=== PATIENT | female | born 1965 | race Caucasian/White ===

== ENCOUNTER 2022-08-12 19:26 | Emergency (ER) | payer OTHER ==
[~2022-08-12] VITALS: Ht 152.4 cm; Wt 58.1 kg
[2022-08-12] MEDS ORDERED: HYDROCODONE/APAP 10/325MG TABLET PO ONE (22:30)
[2022-08-12] MEDS ORDERED: HYDROCODONE/APAP 10/325MG TABLET ONE (22:36)
[2022-08-12] MEDS ORDERED: HYDR-4303 PO (22:36)
--- NOTE | 2022-08-12 23:21 | NUR ---
Patient discharged to home in stable condition. Written and verbal after care instructions given. Patient verbalizes understanding of instruction.
[2022-08-12 23:38] VITALS: BP 121/76
== END 2022-08-12 23:39 | disposition home or self-care (01) ==
LOC: ER 19:35
DX: S92.251A Displaced fracture of navicular [scaphoid] of right foot, initial encounter for closed fracture (principal); W10.9XXA Fall (on) (from) unspecified stairs and steps, initial encounter; Y93.89 Activity, other specified; Y92.89 Other specified places as the place of occurrence of the external cause; Y99.8 Other external cause status
CPT/HCPCS: 73610-TC; 73630-TC